=== PATIENT | male | born 1985 | race Caucasian/White ===

== ENCOUNTER 2022-06-05 10:33 | Emergency (ER) | payer MEDICARE, MEDICAID ==
[~2022-06-05] VITALS: Ht 195.6 cm; Wt 110.0 kg
[~2022-06-05 10:33] MED LIST: EFF37.5XRC PO; FOLI0.4T6 PO; KEP500T PO; LEVE500T PO; PREG300C PO; RISP1TAB98 PO; THIA50TA10 PO; TOPI25TA15 PO; TOPI25TA49 PO; TRAZ-251 PO; VENL-191 PO
[2022-06-05 10:38] VITALS: BP 170/110
[2022-06-05 11:04] LABS: CLARITY,URINE CLOUDY (Clear); COLOR,URINE YELLOW (Yellow); GLUCOSE, URINE NEGATIVE (Neg); KETONES,URINE NEGATIVE (Neg); LEUKOCYTE ESTERASE ,URINE MODERATE (Neg); NITRITES, URINE NEGATIVE (Neg); OCCULT BLOOD,URINE MODERATE (Neg); PROTEIN,URINE NEGATIVE (Neg); UROBILINOGEN,URINE 0.2 E.U/dL (0.2-1.0)
[2022-06-05 11:19] LABS: UA COLLECTION TYPE CLN CATCH MIDSTREAM
[2022-06-05 11:20] LABS: BACTERIA,URINE 2+ /HPF (Neg); RBC,URINE 20-50 /HPF (0-2)
[2022-06-05 11:21] LABS: COARSE GRANULAR CAST 0-3 /LPF (NEGATIVE); WBC CLUMPS,URINE MANY /HPF (NEGATIVE)
[2022-06-05 11:22] LABS: MUCUS STRANDS FEW /LPF (Neg); SQUAMOUS EPITHELIAL CELL,UR FEW /LPF (FEW); TRANSITIONAL EPI CELLS,URINE FEW /HPF
--- NOTE | 2022-06-05 11:23 | NUR ---
PER LAB PT IS A DIFFICULT STICK AND THEY WERE UNABLE TO GET BLOOD.
[2022-06-05] MEDS ORDERED: ondansetron 4mg rapidly disintigrating tab PO ONE (11:45)
[2022-06-05] MEDS ORDERED: normal saline 1000ML IV soln IVB ONE (12:10)
[2022-06-05] MEDS ORDERED: ketorolac trometh. 30mg/ml inj. IV ONE (12:10)
--- NOTE | 2022-06-05 12:16 | NUR ---
Patient seen by provider in [facility]. Patient returned to lobby. Waiting for exam room in main ED.
[2022-06-05 12:19] LABS: BASOPHILS % (AUTO) 0.5 % (0-1); EOSINOPHILS % (AUTO) 0.7 % (0-6); HEMATOCRIT 39.4 % (42.0-52.0); HEMOGLOBIN 12.7 g/dl (14.0-17.9); LYMPHOCYTES # (AUTO) 1.6 X10'3 (1.1-4.8); LYMPHOCYTES % (AUTO) 23.9 % (21-51); MEAN CORPUSCULAR HEMOGLOBIN 28.5 PG (27.0-31.0); MEAN CORPUSCULAR HGB CONC 32.2 g/dL (33.0-36.5); MEAN CORPUSCULAR VOLUME 88.5 FL (78-98); MEAN PLATELET VOLUME 7.4 FL (7.4-10.4); MONOCYTES # (AUTO) 0.4 X10'3 (0-0.9); MONOCYTES % (AUTO) 5.8 % (2-12); NEUTROPHILS # (AUTO) 4.5 X10'3 (1.8-7.7); NEUTROPHILS % (AUTO) 69.1 % (42-75); PLATELET COUNT 211 X10'3 (140-440); RED BLOOD COUNT 4.46 X10'6 (4.70-6.10); RED CELL DISTRIBUTION WIDTH 17.8 % (11.5-14.5); WHITE BLOOD COUNT 6.5 X10'3 (4.5-11.0)
[2022-06-05 12:34] LABS: ALANINE AMINOTRANSFERASE 43 U/L (12-78); ALBUMIN 3.8 G/DL (3.4-5.0); ALKALINE PHOSPHATASE 158 IU/L (46-116); ANION GAP 9 (8-16); ASPARTATE AMINO TRANSFERASE 20 U/L (10-37); BILIRUBIN,TOTAL 0.3 MG/DL (0.1-1.0); BLOOD UREA NITROGEN 5 MG/DL (7-18); BUN/CREATININE RATIO 6.9 (5.4-32.0); CALCIUM 9.1 MG/DL (8.5-10.1); CHLORIDE 103 MMOL/L (99-107); CREATININE 0.72 MG/DL (0.60-1.10); GLUCOSE 107 MG/DL (70-104); LIPASE 87 U/L (73-393); POTASSIUM 3.8 MMOL/L (3.5-5.1); SODIUM 142 MMOL/L (135-145); TOTAL CARBON DIOXIDE 30.4 MMOL/L (24-32); TOTAL PROTEIN 7.8 G/DL (6.4-8.2); eGFR > 90 ML/MIN
[2022-06-05] MEDS ORDERED: ketorolac tromethamine 15mg/ml inj. IV ONE (14:20)
[2022-06-05] MEDS ORDERED: CEPH-585 PO (14:23)
[2022-06-05] MEDS ORDERED: ONDA4TAB12 PO (14:23)
== END 2022-06-05 14:30 | disposition home or self-care (01) ==
LOC: ER 10:34 → EDBD 10:34 → ER 14:30
DX: N39.0 Urinary tract infection, site not specified (principal); R10.11 Right upper quadrant pain; R31.9 Hematuria, unspecified; Z88.1 Allergy status to other antibiotic agents; Z88.2 Allergy status to sulfonamides; Z88.6 Allergy status to analgesic agent
CPT/HCPCS: 36415; 80053; 81001; 83690; 85025; 87088; 99283

== ENCOUNTER 2022-06-06 09:43 | Emergency (ER) | payer MEDICARE, MEDICAID ==
[~2022-06-06] VITALS: Ht 195.6 cm; Wt 111.4 kg
[~2022-06-06 09:43] MED LIST changes: +CEPH-585 PO; +ONDA4TAB12 PO
[2022-06-06] MEDS ORDERED: tamsulosin 0.4mg capsule PO STA (10:01)
[2022-06-06] MEDS ORDERED: acetaminophen 1,000mg/100ml IV 100 ML IV STA (10:01)
[2022-06-06] MEDS ORDERED: morphine 4 MG/ML inj SYRINge IV PRN (10:05)
[2022-06-06] MEDS ORDERED: normal saline 1000ML IV soln IVB ONE (10:05)
[2022-06-06] MEDS ORDERED: ondansetron/PF 4mg/2ml inj IV ONE (10:05)
[2022-06-06] MEDS ORDERED: fentaNYL/PF 50MCG/1 ML 2ML syringe IV ONE (10:30)
[2022-06-06 10:34] LABS: CLARITY,URINE CLOUDY (Clear); COLOR,URINE YELLOW (Yellow); GLUCOSE, URINE NEGATIVE (Neg); KETONES,URINE NEGATIVE (Neg); LEUKOCYTE ESTERASE ,URINE TRACE (Neg); OCCULT BLOOD,URINE LARGE (Neg); PH,URINE 7.5 (4.8-8.0); PROTEIN,URINE NEGATIVE (Neg); UROBILINOGEN,URINE 0.2 E.U/dL (0.2-1.0)
[2022-06-06 10:36] LABS: NITRITES, URINE NEGATIVE (Neg); UA COLLECTION TYPE CLN CATCH MIDSTREAM
[2022-06-06 10:48] LABS: WBC,URINE 0-4 /HPF (0-4)
[2022-06-06 10:49] LABS: MUCUS STRANDS NONE SEEN /LPF (Neg); RBC,URINE 50-100 /HPF (0-2)
[2022-06-06 10:53] LABS: SQUAMOUS EPITHELIAL CELL,UR MODERATE /LPF (FEW)
[2022-06-06 10:54] LABS: BACTERIA,URINE FEW /HPF (Neg)
--- NOTE | 2022-06-06 11:00 | NUR ---
Thalia RN at bedside trying to insert a peripheral IV to the patient
[2022-06-06 11:26] LABS: BASOPHILS % (AUTO) 0.6 % (0-1); EOSINOPHILS # (AUTO) 0.2 X10'3 (0-0.9); EOSINOPHILS % (AUTO) 2.2 % (0-6); HEMATOCRIT 38.9 % (42.0-52.0); HEMOGLOBIN 12.6 g/dl (14.0-17.9); LYMPHOCYTES # (AUTO) 2.4 X10'3 (1.1-4.8); LYMPHOCYTES % (AUTO) 29.6 % (21-51); MEAN CORPUSCULAR HEMOGLOBIN 28.7 PG (27.0-31.0); MEAN CORPUSCULAR HGB CONC 32.5 g/dL (33.0-36.5); MEAN CORPUSCULAR VOLUME 88.3 FL (78-98); MEAN PLATELET VOLUME 7.6 FL (7.4-10.4); MONOCYTES # (AUTO) 0.9 X10'3 (0-0.9); MONOCYTES % (AUTO) 10.9 % (2-12); NEUTROPHILS # (AUTO) 4.6 X10'3 (1.8-7.7); NEUTROPHILS % (AUTO) 56.7 % (42-75); PLATELET COUNT 223 X10'3 (140-440); RED BLOOD COUNT 4.41 X10'6 (4.70-6.10); RED CELL DISTRIBUTION WIDTH 17.9 % (11.5-14.5); WHITE BLOOD COUNT 8.1 X10'3 (4.5-11.0)
[2022-06-06 12:02] LABS: ALANINE AMINOTRANSFERASE 37 U/L (12-78); ALBUMIN 3.9 G/DL (3.4-5.0); ALKALINE PHOSPHATASE 148 IU/L (46-116); ANION GAP 10 (8-16); ASPARTATE AMINO TRANSFERASE 21 U/L (10-37); BILIRUBIN,TOTAL 0.4 MG/DL (0.1-1.0); BLOOD UREA NITROGEN 8 MG/DL (7-18); CHLORIDE 103 MMOL/L (99-107); GLUCOSE 90 MG/DL (70-104); POTASSIUM 3.3 MMOL/L (3.5-5.1); SODIUM 142 MMOL/L (135-145); TOTAL CARBON DIOXIDE 28.8 MMOL/L (24-32); TOTAL PROTEIN 7.9 G/DL (6.4-8.2); eGFR > 90 ML/MIN
[2022-06-06 12:58] VITALS: BP 115/81
== END 2022-06-06 13:04 | disposition home or self-care (01) ==
LOC: ER 09:44
DX: N39.0 Urinary tract infection, site not specified (principal); N20.0 Calculus of kidney; R11.2 Nausea with vomiting, unspecified; Z90.49 Acquired absence of other specified parts of digestive tract; Z98.890 Other specified postprocedural states; F12.90 Cannabis use, unspecified, uncomplicated; Z72.89 Other problems related to lifestyle; Z79.899 Other long term (current) drug therapy; Z88.1 Allergy status to other antibiotic agents; Z88.2 Allergy status to sulfonamides; Z88.6 Allergy status to analgesic agent; Z88.8 Allergy status to other drugs, medicaments and biological substances
CPT/HCPCS: 36415; 74176; 80053; 81001; 85025; 87088; 96361; 96374; 96375; 99285; J2405; J3010; J7030

== ENCOUNTER 2022-10-01 21:42 | Emergency (ER) | payer MEDICARE ==
[~2022-10-01] VITALS: Ht 195.6 cm; Wt 109.1 kg
[~2022-10-01 21:42] MED LIST changes: -CEPH-585 PO; -EFF37.5XRC PO; -FOLI0.4T6 PO; -KEP500T PO; -LEVE500T PO; +LEVE750T66 PO; -ONDA4TAB12 PO; -RISP1TAB98 PO; -THIA50TA10 PO; -TOPI25TA15 PO; -TOPI25TA49 PO; -TRAZ-251 PO; -VENL-191 PO
[2022-10-01 21:49] VITALS: BP 128/85
--- NOTE | 2022-10-01 22:32 | NUR ---
Registration and security both said patient got up and left the ER
== END 2022-10-01 23:04 | disposition left against medical advice (07) ==
LOC: ER 21:43
DX: Z04.6 Encounter for general psychiatric examination, requested by authority (principal); R45.851 Suicidal ideations; Z53.21 Procedure and treatment not carried out due to patient leaving prior to being seen by health care provider
CPT/HCPCS: 99281